=== PATIENT | male | born 1965 | race Asian ===

== ENCOUNTER 2017-09-04 16:13 | Emergency (ER) | payer SELFPAY ==
[~2017-09-04] VITALS: Ht 165.1 cm; Wt 76.7 kg
[2017-09-04 17:24] LABS: BASOPHIL % 1.1 % (0-2); PLATELET COUNT 259 x10^3mcL (130-400)
[2017-09-04 17:36] LABS: CALCIUM 9.1 mg/dL (8.5-10.1); CARBON DIOXIDE 24.8 mmol/L (21-32); CREATININE SERUM 1.9 mg/dL (0.7-1.3); POTASSIUM SERUM 3.6 mmol/L (3.5-5.1)
[2017-09-04 17:41] LABS: RED CELL DISTRIBUTION WIDTH 15.4 % (11.5-14.5)
[2017-09-04 17:47] LABS: ALBUMIN 3.7 g/dL (3.4-5.0); BILIRUBIN TOTAL 0.4 mg/dL (0.20-1.00); MAGNESIUM 1.9 mg/dL (1.8-2.4); TOTAL PROTEIN, SERUM 8.6 g/dL (6.4-8.2)
[2017-09-04 19:44] LABS: UA SPECIFIC GRAVITY 1.025 (1.005-1.035); microscopic required? YES; urine erythrocyte NEGATIVE (NEGATIVE)
[2017-09-04 19:54] LABS: AMPHETAMINE QUAL UR NONE DETECTED (See below)
[2017-09-04 20:40] LABS: T3 TOTAL 1.19 ng/mL
[2017-09-04 20:43] LABS: FREE T4 0.92 ng/dL (0.76-1.46); FREE THYROXINE INDEX 2.1 ug/dL (1.4-4.5); T4(THYROXINE) 6.3 ug/dL (4.7-13.3)
[2017-09-05 06:46] LABS: BASOPHIL % 1.4 % (0-2); PLATELET COUNT 224 x10^3mcL (130-400)
[2017-09-05 07:04] LABS: CALCIUM 8.5 mg/dL (8.5-10.1); CARBON DIOXIDE 25.9 mmol/L (21-32); CREATININE SERUM 2.2 mg/dL (0.7-1.3); PHOSPHOROUS 4.9 mg/dL (2.5-4.9); POTASSIUM SERUM 4.5 mmol/L (3.5-5.1)
[2017-09-05 07:16] LABS: RED CELL DISTRIBUTION WIDTH 15.5 % (11.5-14.5)
[2017-09-05 12:31] VITALS: BP 109/83
== END 2017-09-05 12:31 | disposition left against medical advice (07) ==
LOC: ED 16:13
PROVIDERS: Emergency Medicine; Internal Medicine
DX: R07.89 Other chest pain (principal); I24.9 Acute ischemic heart disease, unspecified; I10 Essential (primary) hypertension; J45.901 Unspecified asthma with (acute) exacerbation; F17.210 Nicotine dependence, cigarettes, uncomplicated; M25.512 Pain in left shoulder; M25.511 Pain in right shoulder; M54.2 Cervicalgia
CPT/HCPCS: 83880; 84439; J7030; Q0092